=== PATIENT | female | born 1955 | race Caucasian/White ===

== ENCOUNTER → 2023-12-05 09:40 | Outpatient (BNVA) | payer MEDICARE, SELFPAY | PROVIDERS: Visit Provider Internal Medicine | DX: E05.90 Thyrotoxicosis, unspecified without thyrotoxic crisis or storm (principal) | CPT/HCPCS: 36415; 84439; 84443; 84480; 99204 ==

== ENCOUNTER → 2024-10-02 11:45 | Outpatient (BNVA) | payer MEDICARE, OTHER, SELFPAY | PROVIDERS: Visit Provider Internal Medicine | DX: E05.00 Thyrotoxicosis with diffuse goiter without thyrotoxic crisis or storm (principal); E06.3 Autoimmune thyroiditis; E27.9 Disorder of adrenal gland, unspecified | CPT/HCPCS: 99214 ==